=== PATIENT | female | born 1990 | race Caucasian/White ===

== ENCOUNTER 2017-11-17 07:02 | Inpatient (IN) ==
--- OUTSIDE RECORDS SUMMARY | 2017-11-17 07:08 | External Medical Summary | Continuity of Care Document ---
:1990 Author Organization [facility] Address [address] [place], [place] [id number] Phone Support Name Relationship Address Phone Naman Stahl parent [address] [phone] [place] [address] Allergies, Adverse Reactions, Alerts Substance Reaction Severity Status Sulfa (Sulfonamide Antibiotics) Unknown Active Medications Medication Instructions Dosage Effective Dates Status Comments (start - stop) Vitamin take 1 tablet by Not Available - Active Tab oral route every day Rhophylac 1,500 - Active unit (300 mcg)/2 mL injection syringe Problems Condition Effective Dates (start - stop) Clinical Status Previous Low Transverse - Encounter for suprvsn of normal - , third trimester 31 weeks gestation of - Suprvsn of preg w insufficient antenat - care, second tri Previous Low Transverse - 22 weeks gestation of - Suprvsn of preg w insufficient antenat - care, second tri Previous Low Transverse - Endo, nutritional and metab diseases - comp preg, second tri 22 weeks gestation of - Suprvsn of preg w insufficient antenat - care, second tri Previous Low Transverse - Endo, nutritional and metab diseases - comp preg, second tri Pap Smear Screening, Cervix - 21 weeks gestation of - Supervision of other high risk - pregnancies, third trimester Oth infect w sexl mode of transmiss - comp preg, second tri 33 weeks gestation of - Previous Low Transverse - 35 weeks gestation of - Procedures Procedure Date Immuniz admnin, 1 vac, sngl/combo 19 Yrs + Flu Vaccine - Quadrivalent Results Test Name Date and Time Measure Units Reference Range Abnormal Flag Comments Unknown Advance Directives Directive Yes / No Effective Date File Name Unknown Encounters Encounter Practice Location Reason(s) Diagnoses Date Provider Care Team Description For Visit [facility] Previous Low Nov-2 Boothe In Womens Transverse 2-201 Janessa. Health SKYLAR, [id number] 7 700 [address], weeks [place], [place], gestation of [place] , Dr [facility] 120, tel:[phone] [place] [address] [place], [id number] , [place]. tel: [phone] Jackson [place] Supervision Nov-0 Boothe In Womens of other high 8-201 Janessa. Health SKYLAR, risk 7 700 [address], pregnancies, [place], [place], [facility] [id number], trimesterOth , [facility] infect w sexl 120, tel:[phone] mode of [place], [id number] transmiss [place], comp preg, [id number] second tri33 , [place]. weeks tel: gestation of [phone] [facility] Nov-0 Boothe Referring In Womens 2-201 Janessa. Provider: Mike CHENG, 7 700 Janessa Boothe [address], Medical , [address] [place] [address], [facility] [id number], Dr [facility] 120, [place] 120, tel:[phone] [place], [address] [place], [id number]. , [place]. tel: tel: [phone] Jackson [place] Previous Low Oct-2 Boothe Referring In Womens Transverse 5-201 Janessa. Provider: Health SKYLAR, C-SectionEnco 7 700 Janessa Boothe [address], unter for Medical [place], [address] [place] [address], suprvsn of [facility] , normal , [facility] , 120, [place] 120, tel:[phone] third Alvar[place], [address] [place], [place], weeks [id number]. gestation of , [place]. tel: tel: [phone] Jackson [place] Suprvsn of Jun-2 Boothe In Womens preg w 8-201 Janessa. Health PA, insufficient 7 700 [address], [place], [place], second Center , triPrevious , [facility] Low 120, tel:21 Transverse [place], [address] [id number] [place], weeks [id number] gestation of , [place]. tel: [phone] Jackson [place] Suprvsn of Jun-2 Boothe In Womens Ultrasound preg w 8- Janessa. Health PA, insufficient 7 700 [address], [place], [place], [facility] Center [id number], triPrevious , [facility] Low 120, tel:21 Transverse [place], [address] C-SectionEndo [place], , nutritional [phone] and metab , [place]. diseases comp tel: preg, second [phone] tri22 weeks gestation of [facility] Suprvsn of Jun-2 Boothe In Womens preg w 2-201 Janessa. Health PA, insufficient 7 700 [address], [place], [facility] Center [id number], triPrevious , [facility] Low 120, tel:21 Transverse [place], [address] C-SectionEndo [place], , nutritional [id number] and metab , [place]. diseases comp tel: preg, second [phone] triPap Smear Screening, [id number] weeks gestation of [facility] March- Boothe In Womens 1-201 Janessa. Health PA, 2 700 [address], [place], Center [id number], Dr [facility] [place] 120, tel:[phone] [place] [address] [place], [id number] , [place]. tel: [phone] Family History Family Member Diagnosis Age At Onset Maternal Grandfather Diabetes mellitus No family history of Thrombosis Paternal Grandfather Thyroid Disorder Immunizations Vaccine Date Status Comments Tdap completed Source: New Immunization Record Influenza, injectable, completed Source: New Immunization Record quadrivalent, preservative free, 3 yrs or older Rhophylac completed Source: New Immunization Record Rhophylac ordered Source: New Immunization Record Payers Payer name Insurance type Covered democrat ID Authorization(s) [employer] [place] Medicaid MC [id number] [place] BL [id number] [place] Medicaid MC [id number] [place] Medicaid MC [id number] [place] [id number] [place] Medicaid MC [id number] Social History Type Description Quantity Date Captured Alcohol Use Details No Caffeine Use Details Unknown Tobacco Use Status Never smoked tobacco Smoking Status Never smoker Vital Signs Date / Height Weight BMI Pulse Blood Temperature Respiratory Body Head BMI Time: Rate Pressure Rate Surface Circumference percentile Area Unknown Chief Complaint And Reason For Visit Unknown Chief Complaint And Reason For Visit Reason For Referral Reason For Referral Unknown Plan Of Care Date Type Action Status Appointment Marlyn Poe BOOKED Appointment Marlyn Poe [facility] [place] C/S- MB Assist BOOKED Unknown Immunization Rhophylac ordered Future Order: Radiology Order Complete OB Ultrasound > 14 Ordered Weeks ([id number]) Date Type Problem Goal Intervention Status Start Date Unknown. History Of Present Illness Encounter Date Complaint History Of Present Illness This patient has no known history of present illness Functional Status Encounter Date Functional Assessment Cognitive Assessment Unknown Medications Administered Medication Instructions Dosage Effective Dates (start - stop) Status Comments Drug Treatment Unknown Instructions Date Instruction Additional Information influenza vaccine gestational glucose lab screening Zika virus assessment & precautions HIV and other routine tests risk factors identified by history anticipated course of care nutrition and weight gain counseling, special diet toxoplasmosis precautions (cats / raw meat) sexual activity exercise indications for ultrasound influenza vaccine environmental / work hazards travel illicit / recreational drugs use of any medications (including supplements, vitamins, herbs, OTC drugs) domestic violence seat belt use childbirth classes / hospital facilities hospital registration genetic testing
--- OUTSIDE RECORDS SUMMARY | 2017-11-17 07:08 | External Medical Summary | Continuity of Care Document ---
:1990 Author Organization [facility] Address [address] [place], [place] [address] Phone Support Name Relationship Address Phone Naman Stahl parent [address] [phone] [place] [address] Allergies, Adverse Reactions, Alerts Substance Reaction Severity Status Sulfa (Sulfonamide Antibiotics) Unknown Active Medications Medication Instructions Dosage Effective Dates Status Comments (start - stop) Vitamin take 1 tablet by Not Available - Active Tab oral route every day Rhophylac 1,500 - Active unit (300 mcg)/2 mL injection syringe Problems Condition Effective Dates (start - stop) Clinical Status Previous Low Transverse - 35 weeks gestation of - Previous Low Transverse - Encounter for suprvsn [...] Cervix - 21 weeks gestation of - Suprvsn of preg w insufficient antenat - care, third trimester Previous Low Transverse - 37 weeks gestation of - Supervision of other high risk - pregnancies, third trimester Oth infect w sexl mode of transmiss - comp preg, second tri 33 weeks gestation of - Previous Low Transverse - Decreased movements, third - trimester, unsp 37 weeks gestation of - Previous Low Transverse - Encounter For Screening For - Streptococcus B 35 weeks gestation of - Procedures Procedure Date OB Visit No Charge Results Test Name Date and Time Measure Units Reference Range Abnormal Flag Comments Unknown Advance Directives Directive Yes / No Effective Date File Name Unknown Encounters Encounter Practice Location Reason(s) Diagnoses Date Provider Care Team Description For Visit [facility] Previous Low Dec-1 Boothe In Womens Transverse 2-201 Janessa. Health SKYLAR, C-SectionDecrease 7 700 [address], movements, third [place], trimester, unsp37 [place], weeks gestation 120, , of [facility] [place], tel:[phone] , [place]. tel:[phone] [facility] Suprvsn of preg w Dec-0 Boothe In Womens insufficient 6-201 Janessa. Health SKYLAR, antenat care, 7 700 PO Box third Medical 1522, trimesterPrevious Center [place], Low Transverse [place], [id number] weeks 120, [id number], gestation of [facility] [place], tel:[phone] , [place]. tel:+- [phone] [facility] Previous Low Nov-2 Boothe In Womens Transverse 8-201 Janessa. Health SKYLAR, C-SectionEncounte 7 700 PO [address] r For Medical 1522, Screening For Center [place], Streptococcus B35 [place], weeks gestation 120, [id number], of [facility] [place], tel:[phone] , [place]. tel:[phone] [facility] Previous Low Nov-2 Boothe In Womens Transverse 2-201 Janessa. Health SKYLAR, C-[id number] weeks 7 700 PO Box gestation of Medical [address], [place] Dr David, [facility] [place], 120, , [place], tel: [phone] , [place]. tel: [phone] Jackson [place] Supervision of Nov-0 Boothe In Womens other high risk 8-201 Janessa. Health SKYLAR, pregnancies, 7 700 [address] third Medical 1522, trimesterOth [facility], infect w sexl , [facility] [place], mode of transmiss 120, , comp preg, second [facility] tri33 weeks [place], tel: gestation of , [place]. tel: [phone] Jackson [place] Nov-0 Boothe Referring In Womens 2-201 Janessa. Provider: Mike CHENG, 7 700 Janessa Boothe PO Box Medical K, [address], [place] [address], [facility] [place], 120, [place] 120, , [place], [place], tel:[phone]. , [place]. tel: tel: [phone] Jackson [place] Previous Low Oct- Boothe Referring In Womens Transverse 5-201 Janessa. Provider: Health SKYLAR, C-SectionEncounte 7 700 Janessa Boothe PO Box r for suprvsn of Medical K, 700 1522, normal , [facility] [place], third [id number] , [facility] Dr [place], weeks gestation 120, [place] 120, [id number], of [place], [place], tel:[phone]. , [place]. tel: tel: [phone] Jackson [place] Suprvsn of preg w Aug-2 Boothe In Womens insufficient 8-201 Janessa. Health SKYLAR, antenat care, 7 700 PO Box second Medical 1522, triPrevious Low [place], Transverse [place], C-[id number] weeks 120, , gestation of [place], tel:[phone] , [place]. tel: [phone] [facility] Suprvsn of preg w Jun- Boothe In Womens Ultrasound insufficient 8-201 Janessa. Health PA, antenat care, 7 700 PO Box second Medical 1522, triPrevious Low [place] [address], Ste [place], C-SectionEndo, 120, [id number], nutritional and [place], [place] metab diseases [place], tel:[phone] comp preg, second [id number] [id number] tri22 weeks , [place]. gestation of tel: [phone] [facility] Suprvsn of preg w Jun- Boothe In Womens insufficient 2-201 Janessa. Health PA, antenat care, 7 700 PO Box second Medical 1522, triPrevious Low [place] [address], Ste [place], C-SectionEndo, 120, [id number], nutritional and [place], [place] metab diseases [place], tel: comp preg, second [phone] triPap Smear , [place]. Screening, tel: [phone] weeks [phone] gestation of [facility] Boothe In Womens 1-201 Janessa. Health PA, 2 700 [address] Medical [address], [place] [address] [place], 120, [id number], [place], tel: [phone] , [place]. tel: [phone] Family History Family Member Diagnosis Age At [...] Record Payers Payer name Insurance type Covered republican ID Authorization(s) [employer] [place] Medicaid MC [id number] MICHAEL MUJICA [id number] [employer] [place] Medicaid [place] [id number] [place] Medicaid MC [id number] [place] Medicaid MC [id number] [place] Medicaid MC [id number] Social History Type Description Quantity Date Captured Alcohol Use Details No Caffeine Use Details Unknown Tobacco Use Status Smoking Status Never smoker Vital Signs Date / Height Weight BMI Pulse Blood Temperature Respiratory Body Head BMI Time: Rate Pressure Rate Surface Circumference percentile Area 265.60 1543 134/2017 lbs .11 mm[Hg] 3:29 kg/m PM eter (2) Chief Complaint And Reason For Visit Unknown Chief Complaint And Reason For Visit Reason For Referral Reason For Referral Unknown Plan Of Care Date Type Action Status Appointment Marlyn Poe [facility] [place]- MB Assist BOOKED Appointment Marlyn Poe BOOKED Unknown Immunization Rhophylac ordered Future Order: Radiology Order Complete OB Ultrasound > 14 Ordered Weeks ([id number]) Date Type Problem Goal Intervention Status Start Date Unknown. History Of Present Illness Encounter Date Complaint History Of Present Illness This patient has no known history of present illness Functional Status Encounter Date Functional Assessment Cognitive Assessment Unknown Medications Administered Medication Instructions Dosage Effective Dates (start - stop) Status Comments Drug Treatment Unknown Instructions Date Instruction Additional Information labor signs group B strep screening influenza vaccine gestational glucose lab screening Zika [...]
[2017-11-17] MEDS ORDERED: CEFAZOLIN PREMIX (MC ONLY) 2 GM/50 ML BAG IV ONE (07:27)
[2017-11-17] MEDS ORDERED: CEFAZOLIN 1 G INJECTION IVP ONE (07:27)
[2017-11-17] MEDS ORDERED: CITRIC ACID/SODIUM CITRATE 30ml PO ONE (07:27)
[2017-11-17] MEDS ORDERED: FAMOTIDINE PB 20 MG/50 ML BAG IV ONE (07:27)
[2017-11-17] MEDS ORDERED: NOZIN NASAL SWAB NAS ONE (07:27)
[2017-11-17] MEDS: LR 1,000 ML IV SCH ×3 (07:39→13:00)
[2017-11-17 07:49] VITALS: BMI 41.8
--- NOTE | 2017-11-17 08:32 | Anesthesia Preoperative Report ---
Anesthesia Preoperative Record - Date and Time Date: 11/17/17 Preoperative Diagnosis: Repeat C Section Proposed Procedure: C Section NPO Since Date: 11/17/17 NPO Since Time: 20:00 Allergies/Adverse Reactions: Allergies Allergy/AdvReac Type Severity Reaction Status Date / Time Sulfa (Sulfonamide Allergy Intermediate BLISTERING Verified 11/16/12 13:23 Antibiotics) - Vital Signs Vital Signs: Temperature 98.7 F 11/17/17 07:58 Pulse Rate 104 H 11/17/17 07:58 Respiratory Rate 20 11/17/17 07:58 Blood Pressure 134/70 11/17/17 07:58 Pulse Oximetry 98 11/17/17 07:58 Height and Weight: Height 5 ft 7 in Weight 121.109 kg Body Mass Index 41.8 - Medications Inpatient Medications: Current Medications Lactated Ringer's (Lactated Ringers) 1,000 mls @ 999 mls/hr IV .Q1H1M ELMA Last Admin: 11/17/17 07:39 Dose: 999 mls/hr Home Medications: Home Medications Medication Instructions Recorded Confirmed Type Iron 18 mg PO DAILY #0 11/16/12 11/16/17 History Vits W-Ca,Fe,Fa(<1MG) 1 tab PO DAILY #0 11/16/12 11/16/17 History () Is Patient on Beta David?: No - Medical History Respiratory: DENIES: Asthma, Bronchitis, Chronic Obstructive Pulmonary Disease (COPD), Dyspnea, Orthopnea, Pulmonary Embolism, Pneumonia, Upper Respiratory Infection, Pulmonary Edema, Sleep Apnea, Tuberculosis, Other Cardiovascular: DENIES: Abnormal EKG, Angina, Arrhythmia, Congestive Heart Failure, Coronary Artery Disease, Heart Murmur, Hypertension, Hypotension, High Cholesterol, Myocardial Infarction, Rheumatic Fever, Valvular Heart Disease, Other Gastrointestional: DENIES: Obstructive Bowel, Hepatitis, Cirrhosis, Nausea or Vomiting Present, Gastroesophageal Reflux Disease, Gastrointestinal Bleeding, Hiatal Hernia, Ulcer , Morbid Obesity, Other Neuro/Musculoskeletal: Denies: HX.MS.OSAR, Back Problems, Cerebrovascular Accident, Depression, Headaches, Loss of Consciousness, Muscle Weakness, Neuromuscular Disorder, Paralysis, Paresthesia, Syncope, Seizures, Other Renal/Endocrine: Reports: Thyroid Disease (HX OF NO LONGER HAS ISSUES) DENIES: Diabetes Mellitus Type 1, Diabetes Mellitus Type 2, Renal Failure, Dialysis, Weight Loss, Weight Gain, Other Other History: Reports: Now DENIES: Anesthesia Reactions, Blood Transfusions, Chemotherapy, Cancer, Hemophilia, Malignant Hyperthermia, Sickle Cell Disease, Other - Surgical History HEENT Surgeries: Reports: Oral Surgery (WISDOM TEETH) Reproductive Surgery/Treatment: Reports: Section Anesthesia Reactions: None Hx Family Anesthesia Reaction: No History of Motion Sickness: No - Social History Smoking Status: Former smoker Hx Chewing Tobacco Use: No Second Hand Exposure: No Substance Use Type: does not use Alcohol Intake Frequency: does not drink - Pertinent Findings Laboratory: CBC and BMP 11/17/17 07:38 - Physical Exam Respiratory Exam: Present: lungs clear, bilateral breath sounds equal Cardiovascular Exam: Present: regular rate and rhythm, no murmur - Airway Assessment Mallampati Score: I TMD: 3 Fingerbreadths Overall Assessment: no airway concerns - ASA ASA Score: 3 - Plan Anesthesia: Neuroaxial Regional/Trunk Block: Spinal - Discussion Discussion: Discussed risks/options/alternatives of anesthesia and questions answered. Patient consents. Nursing pain assessment noted. Present for Discussion: family member Attestation Statement: Prior to the delivery of any anesthetic medication, I examined the patient, developed the plan, obtained the patient's consent and discussed the risk and benefits of the procedure with the patient/guardian. - Additional Information Seen by Anesthesia: Yes
[2017-11-17] MEDS ORDERED: NALOXONE 2 MG/2 ML INJECTION PFS IVP PRN (08:33)
[2017-11-17] MEDS ORDERED: ONDANSETRON 4 MG/2 ML INJECTION IVP PRN (08:33)
[2017-11-17] MEDS ORDERED: NALBUPHINE 10 MG/ML INJECTION IVP PRN (08:33)
[2017-11-17] MEDS ORDERED: PHENYLEPHRINE INJ 10 MG/ML VIAL IV ONE (08:41)
[2017-11-17] MEDS ORDERED: ONDANSETRON 4 MG/2 ML INJECTION ONE (08:41)
[2017-11-17] MEDS ORDERED: MORPHINE SULFATE PF 5mg/10ml INJ (Duramorph) ONE (08:42)
[2017-11-17] MEDS ORDERED: FentaNYL 100 MCG/2 ML INJECTION ONE (08:43)
[2017-11-17] MEDS ORDERED: NALOXONE 0.4 MG/ML INJECTION IVP PRN (09:15)
[2017-11-17] MEDS ORDERED: OXYTOCIN BOLUS BAG 30 UNIT/500 ML ML IV SCH (09:45)
[2017-11-17] MEDS ORDERED: ACETAMINOPHEN 500 MG TABLET PO PRN (10:10)
[2017-11-17] MEDS ORDERED: RHOPHYLAC - PHARMACY CONSULT MC ONE (10:10)
[2017-11-17] MEDS ORDERED: SIMETHICONE 80 MG CHEWABLE TABLET PO PRN (10:10)
[2017-11-17] MEDS ORDERED: HYDROCORTISONE 2.5% CREAM 30gm RECTALLY PRN (10:10)
[2017-11-17] MEDS ORDERED: CALCIUM CARBONATE Chewable 500mg TABLET PO PRN (10:10)
[2017-11-17] MEDS ORDERED: OXYTOCIN DRIP 30 UNIT/500 ML ML IV SCH (10:15)
[2017-11-17] MEDS: D5LR 1,000 ML IV SCH ×2 (10:55→21:55)
[2017-11-17] MEDS: HYDROCODONE/APAP 5mg/325mg TABLET PO PRN ×2 (11:46→17:12)
[2017-11-17] MEDS: IBUPROFEN 800 MG TABLET PO PRN ×2 (11:47→21:49)
[2017-11-17] MEDS: DiphenhydrAMINE 25 MG CAPSULE PO PRN ×2 (12:28→18:01)
[2017-11-17] MEDS: SIMETHICONE 80 MG CHEWABLE TABLET PO SCH ×3 (14:19→21:53)
--- NOTE | 2017-11-17 18:13 | OB/GYN Progress Note ---
OB-PP Progress Note - Subjective Date: 11/17/17 Lochia: Minimal Pain: controlled Voiding: perez still in place - Objective Vital Signs: Last Vital Signs Temp 98.6 F 11/17/17 16:58 Pulse 90 11/17/17 16:58 Resp 18 11/17/17 16:58 BP 120/67 11/17/17 16:58 Pulse Ox 99 11/17/17 16:58 Urine Output: adequate General: alert and oriented Laboratory: Laboratory Results - last 24 hr 11/17/17 11/17/17 11/17/17 07:38 07:38 11:05 WBC 14.7 H RBC 3.82 L Hgb 10.5 L Hct 32.7 L MCV 85.6 MCH 27.5 MCHC 32.1 RDW Std Deviation 42.9 Plt Count 173 MPV 11.7 Immature Gran % (Auto) 0.5 Neut % (Auto) 70.3 H Lymph % (Auto) 20.4 L Shoshone % (Auto) 8.2 Eos % (Auto) 0.4 Baso % (Auto) 0.2 Neut # (Auto) 10.3 H Lymph # (Auto) 3.0 Shoshone # (Auto) 1.2 H Eos # (Auto) 0.1 Baso # (Auto) 0.0 Abs Immat Gran (auto) 0.08 H Hgb /Adult Ratio Blood Type O Negative Antibody Screen Positive A* Antibody Identification Immune D RhIG Candidate? Is a candidate 11/17/17 11/17/17 14:44 14:44 WBC 15.8 H RBC 3.56 L Hgb 9.7 L Hct 30.6 L MCV 86.0 MCH 27.2 MCHC 31.7 RDW Std Deviation 42.5 Plt Count 174 MPV 11.8 Immature Gran % (Auto) Neut % (Auto) Lymph % (Auto) Shoshone % (Auto) Eos % (Auto) Baso % (Auto) Neut # (Auto) Lymph # (Auto) Shoshone # (Auto) Eos # (Auto) Baso # (Auto) Abs Immat Gran (auto) Hgb /Adult Ratio 0.0000 Blood Type Antibody Screen Antibody Identification RhIG Candidate? - Assessment Assessment: Repeat C/S - Plan Plan: routine care
[2017-11-18] MEDS: IBUPROFEN 800 MG TABLET PO PRN ×2 (07:11→16:13)
[2017-11-18] MEDS: HYDROCODONE/APAP 5mg/325mg TABLET PO PRN ×4 (07:11→19:11)
--- NOTE | 2017-11-18 07:41 | Operative Note ---
DATE OF PROCEDURE 11/17/2017 PREOPERATIVE DIAGNOSES 1. 27-year-old 2, para 1 at 39 weeks gestational age. 2. Previous . POSTOPERATIVE DIAGNOSES 1. 27-year-old 2, para 1 at 39 weeks gestational age. 2. Previous . PROCEDURE Repeat low transverse section. SURGEON Dr. Janessa [place] WING COMMANDER Omid Mayer, Director Social Service ANESTHESIA Spinal by Herve Christianson CRNA COMPLICATIONS None. EBL 600 ml FINDINGS Viable male , cephalic OT position, clear fluids, Apgars 8/9, weight 3752 g, name "Heri." Normal-appearing uterus, tubes and ovaries. PROCEDURE The patient was taken to the operating room where anesthesia was obtained. She was placed in the dorsal supine position with a leftward tilt and a Denton catheter was placed. She was prepared and draped in the normal sterile fashion. A Pfannenstiel skin incision was made through her previous incision and carried down to the fascia. The fascia was incised in the midline and extended laterally with the Bhatia scissors. The fascia was elevated and the underlying rectus muscles were dissected off. The peritoneum was entered during this process. This was extended superiorly and inferiorly with good visualization of the bladder. The bladder blade was inserted. The bladder was low enough on the uterus that a bladder flap was not created. The lower uterine segment was incised in a transverse fashion layer by layer with a scalpel and bluntly extended. The infant's head was delivered atraumatically. The nose and mouth were suctioned. The cord was clamped and cut. The was given to the waiting resuscitation team. The placenta delivered spontaneously. The uterus was exteriorized and cleared of all clots and debris. The uterine incision was closed with running-locked O Monocryl. The midportion of the incision was imbricated because this part was so thin and also to obtain hemostasis. The uterus was returned to the abdomen. The gutters were cleared of all clots and debris. The uterine incision was inspected one final time and still noted to be hemostatic. The peritoneum was closed with running 2-0 Vicryl. Hemostasis was obtained in the rectus muscles with the cautery. The fascia was closed with running 0 Vicryl. Hemostasis was obtained in the subcutaneous tissue with the cautery. A deeper stitch of 2-0 chromic was placed to help close the space. The skin was closed with 4-0 Vicryl in a subcuticular manner. Dermabond was placed. Sponge, sharp and instrument counts were correct. The patient tolerated the procedure well and was taken to the recovery room in good condition. KARAN
--- NOTE | 2017-11-18 08:17 | OB/GYN Progress Note ---
OB-PP Progress Note - General POD:: POD1 - Subjective Date: 11/18/17 Lochia: Minimal Pain: controlled Voiding: voiding Nausea or Vomiting Present: No - Objective Vital Signs: Last Vital Signs Temp 98.3 F 11/18/17 04:15 Pulse 91 11/18/17 04:15 Resp 16 11/18/17 04:15 BP 109/60 11/18/17 04:15 Pulse Ox 97 11/18/17 04:15 Urine Output: good General: alert and oriented Abdomen: fundus firm Incision: intact Extremities: non-tender Laboratory: Laboratory Results - last 24 hr 11/17/17 11/17/17 11/17/17 07:38 11:05 14:44 WBC 15.8 H RBC 3.56 L Hgb 9.7 L Hct 30.6 L MCV 86.0 MCH 27.2 MCHC 31.7 RDW Std Deviation 42.5 Plt Count 174 MPV 11.8 Hgb /Adult Ratio Blood Type O Negative Antibody Screen Positive A* Antibody Identification Immune D RhIG Candidate? Is a candidate 11/17/17 14:44 WBC RBC Hgb Hct MCV MCH MCHC RDW Std Deviation Plt Count MPV Hgb /Adult Ratio 0.0000 Blood Type Antibody Screen Antibody Identification RhIG Candidate? - Assessment Assessment: Repeat C/S - Plan Plan: routine care
[2017-11-18] MEDS: SIMETHICONE 80 MG CHEWABLE TABLET PO SCH ×4 (08:45→21:48)
[2017-11-18] MEDS: DiphenhydrAMINE 25 MG CAPSULE PO PRN (08:45)
[2017-11-18] MEDS: DOCUSATE CALCIUM 240 MG CAPSULE PO SCH (08:45)
[2017-11-18] MEDS ORDERED: RHO(D) IMMUNE GLOBULIN 300 MCG/2 ML INJECTION IVP ONE (11:21)
--- NOTE | 2017-11-18 11:25 | Pharmacy Consult ---
Pharmacy Consult-Rhophylac - Laboratory Information 11/17/17 11/17/17 11/17/17 07:38 11:05 14:44 Hgb /Adult Ratio 0.0000 Blood Type O Negative RhIG Candidate? Is a candidate - Consult Information Rh FACTOR CONSULT: Mother Blood Type = O NEGATIVE Child Blood Type = O Positive Hgb / Adult Ratio = 0.0000 Will give Rho D Immunglobulin 300mcg IV x 1 dose. Thank you.
[2017-11-18 17:18] VITALS: O2SAT 99
[2017-11-18 21:27] VITALS: TEMP 98.1
[2017-11-19] MEDS: IBUPROFEN 800 MG TABLET PO PRN (00:40)
[2017-11-19] MEDS: HYDROCODONE/APAP 5mg/325mg TABLET PO PRN ×2 (00:40→08:18)
[2017-11-19 05:53] VITALS: BP 108/58; PULSE 86; RESP 18
[2017-11-19] MEDS: DOCUSATE CALCIUM 240 MG CAPSULE PO SCH (08:18)
--- NOTE | 2017-11-19 09:20 | OB/GYN Progress Note ---
OB-PP Progress Note - General PPD2 Maternal Group B Strep: Negative Maternal blood type: O- Maternal Rubella Status: Immune - Subjective Date: 11/19/17 Lochia: Minimal Pain: controlled Voiding: voiding Nausea or Vomiting Present: Yes - Objective Vital Signs: Last Vital Signs Temp 98.1 F 11/19/17 05:35 Pulse 86 11/19/17 05:35 Resp 18 11/19/17 05:35 BP 108/58 11/19/17 05:35 Pulse Ox 99 11/19/17 05:35 Urine Output: good General: alert and oriented Respiratory: non-labored Abdomen: fundus firm, non-tender Incision: normal Extremities: non-tender Edema: none - Assessment Assessment: SP, Repeat C/S - Plan Plan: routine care, discharge home
== END 2017-11-19 10:30 | disposition home or self-care (01) | DRG 766 ==
LOC: MC 07:02
PROVIDERS: ADMIT Obstetrics & Gynecology; ATTEND Obstetrics & Gynecology